=== PATIENT | female | born 1980 | race Caucasian/White ===

== ENCOUNTER 2018-06-15 10:00 | Day surgery (SDC) | payer OTHER ==
[2018-06-15] MEDS ORDERED: Sodium Chloride 0.9% 1,000 ML IV ONE (10:53)
--- NOTE | 2018-06-15 11:12 | C.PDOC ---
History Of Present Illness 37 y/o female comes to ED for same day surgery for hemorrhoid. Last PO intake was 8pm last night. Patient denies abdominal pain, nausea, vomiting, or fever. Notes last bowel movement was yesterday. Time Seen by Provider: 06/15/18 10:35 Chief Complaint (Nursing): Medical Clearance History Per: Patient History/Exam Limitations: no limitations Onset/Duration Of Symptoms: Days Current Symptoms Are (Timing): Still Present Past Medical History Reviewed: Historical Data, Nursing Documentation, Vital Signs Vital Signs: Last Vital Signs Temp 98.5 F 06/15/18 10:06 Pulse 69 06/15/18 10:06 Resp 16 06/15/18 10:06 BP 141/85 06/15/18 10:06 Pulse Ox 100 06/15/18 10:06 Primary Care Provider: Callum Weir Family History: States: No Known Family Hx - Social History Hx Alcohol Use: Yes Hx Substance Use: No Review Of Systems Constitutional: Negative for: Fever, Chills Respiratory: Negative for: Shortness of Breath Gastrointestinal: Positive for: Other (hemorrhoid). Negative for: Nausea, Vomiting, Abdominal Pain Genitourinary: Negative for: Dysuria Musculoskeletal: Negative for: Back Pain Physical Exam - Physical Exam Appears: Non-toxic, No Acute Distress Skin: Warm, Dry Head: Normacephalic Eye(s): bilateral: PERRL Oral Mucosa: Moist Neck: Supple Chest: No Tenderness Cardiovascular: Rhythm Regular, No Murmur Respiratory: No Rales, No Rhonchi, No Wheezing, Other (clear to auscultation bilaterally) Gastrointestinal/Abdominal: Bowel Sounds (normoactive), Soft, No Tenderness Rectal: Hemorrhoids (small, firm, mildly tender hemorrhoid in 4 o clock position, non-thrombosed) Extremity: Bilateral: Atraumatic Neurological/Psych: Oriented x3, Normal Speech, Normal Cognition ED Course And Treatment ECG: Interpreted By Me, Viewed By Me ECG Rhythm: Sinus Rhythm Rate From EC O2 Sat by Pulse Oximetry: 100 (RA) Pulse Ox Interpretation: Normal Medical Decision Making Medical Decision Making: Plan: --Labs --EKG --UA --Urine preg --IV fluids 1L Disposition Discussed With : Quincy Dobson - Disposition Disposition: HOSPITALIZED Disposition Time: 11:13 Condition: GOOD Forms: [facility] ([place]ayan) - Clinical Impression Clinical Impression: Hemorrhoid - 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 - Scribe Statement The provider has reviewed the documentation as recorded by the Scribdonavan Doll All medical record entries made by the Soledadibdonavan were at my direction and personally dictated by me. I have reviewed the chart and agree that the record accurately reflects my personal performance of the history, physical exam, medical decision making, and the department course for this patient. I have also personally directed, reviewed, and agree with the discharge instructions and disposition.
[2018-06-15 11:19] LABS: BASO % 0.5 % (0.0-2.0); EOS % 0.6 % (0.0-4.0); HEMOGLOBIN 13.8 g/dL (11.0-16.0); LYMPH # 2.5 K/uL (1.0-4.3); LYMPH % 33.6 % (20.0-40.0); MEAN CELL VOLUME 90.4 fL (81.0-99.0); MEAN CORPUSCULAR HEMOGLOBIN 29.9 pg (27.0-31.0); MEAN CORPUSCULAR HGB CONC 33.1 g/dL (33.0-37.0); MEAN PLATELET VOLUME 7.7 fL (7.2-11.7); MONO # 0.4 K/uL (0.0-0.8); MONO % 5.4 % (0.0-10.0); NEUT # 4.5 K/uL (1.8-7.0); NEUT % 59.9 % (50.0-75.0); RBC 4.6 Mil/uL (3.80-5.20); RED CELL DISTRIBUTION WIDTH 13.9 % (11.5-14.5); WHITE BLOOD COUNT 7.5 K/uL (4.8-10.8)
[2018-06-15 11:26] LABS: HCG,QUALITATIVE URINE NEGATIVE (NEGATIVE)
[2018-06-15 11:32] LABS: INR 1.1; PROTHROMBIN TIME 12.2 SECONDS (9.7-12.2)
[2018-06-15 11:42] LABS: SQUAMOUS EPITHIAL < 1 /hpf (0-5); URINE BACTERIA RARE (<OCC); URINE BILIRUBIN NEGATIVE (NEGATIVE); URINE BLOOD 1+ (NEGATIVE); URINE CLARITY Clear (Clear); URINE COLOR Yellow (YELLOW); URINE GLUCOSE (UA) NORMAL (Normal); URINE LEUKOCYTE ESTERASE NEG Leu/uL (Negative); URINE PROTEIN NEGATIVE (NEGATIVE); URINE UROBILINOGEN NORMAL mg/dL (0.2-1.0)
[2018-06-15 13:01] LABS: ALB/GLOB RATIO 1.4 (1.0-2.1); ALBUMIN 4.2 g/dL (3.5-5.0); ALT/SGPT 29 U/L (9-52); AST/SGOT 28 U/L (14-36); BLOOD UREA NITROGEN 12 mg/dL (7-17); CALCIUM 9.2 mg/dl (8.6-10.4); GFR NON-AFRICAN AMERICAN > 60
[2018-06-15] MEDS ORDERED: Lidocaine Hydrochloride 10 ML INJ ONE (13:31)
[2018-06-15] MEDS ORDERED: ceFAZolin 1 gm in NS 1 GM/100 ML BAG IVPB ONE (13:31)
[2018-06-15] MEDS ORDERED: Midazolam 2 MG/2 ML VIAL ONE (13:33)
[2018-06-15] MEDS ORDERED: Propofol 10 mg/ml Inj (20 ML) ONE (13:33)
[2018-06-15] MEDS ORDERED: Rocuronium 10 mg/ml (5 ml) ONE (13:35)
[2018-06-15] MEDS ORDERED: Succinylcholine Chloride 20 mg/ml Syr (5 ml) IV ONE (13:35)
[2018-06-15] MEDS ORDERED: Lidocaine Hydrochloride 5 ML INJ ONE (13:35)
[2018-06-15] MEDS ORDERED: Bupivacaine HCl 0.5% PF (10 ml) Inj ONE (14:32)
[2018-06-15] MEDS ORDERED: Oxycodone/Acetaminophen 5/325 mg Tab PO PRN (14:45)
[2018-06-15] MEDS ORDERED: Lactated Ringer's 1,000 ML IV SCH (15:15)
[2018-06-15] MEDS: HYDROmorphone 0.5 mg/0.5 ml ISec IVP PRN ×2 (15:21→16:06)
[2018-06-15 17:15] VITALS: O2SAT 100
[2018-06-15 17:27] VITALS: BP 111/70; PULSE 78; RESP 20; TEMP 97
--- NOTE | 2018-06-16 06:12 | OP ---
PROCEDURE DATE: 06/15/2018 PREOPERATIVE DIAGNOSIS: Thrombosed complex hemorrhoids. POSTOPERATIVE DIAGNOSES: Thrombosed complex hemorrhoids with rectal polyp. PROCEDURES PERFORMED: 1. Complex hemorrhoidectomy. 2. Full-thickness transanal excision of rectal polyp with advancement flap closure. 3. Repair of pudendal blood vessel. SURGEON: Quincy Dobson MD TYPE OF ANESTHESIA: General. ESTIMATED BLOOD LOSS: 15 mL. POSTOPERATIVE CONDITION: Stable. INDICATIONS FOR SURGERY: This is a 37-year-old female with a history of severe hemorrhoids including thrombosis and prolapse, who was seen in emergency room today with thrombosed hemorrhoids and seen in surgical consultation. Decision was made to take the patient for hemorrhoidectomy upon admission. DESCRIPTION OF PROCEDURE: The patient was taken to the operating room. General anesthesia was administered. The patient was placed in the prone position, Jackknife with the buttocks taped open. Proctosigmoidoscopy was carried out to 20 cm with no abnormal findings above the dentate line. An anoscopy revealed the small polyp just above the dentate line and the complex hemorrhoids in the left lateral quadrant and the external hernia was . Next, an anal retractor was placed, and the left lateral hemorrhoid bundle was grasped using a dee clamp. It was ligated at its space with a heavy Monocryl suture. A generous elliptical incision was made, and the hemorrhoid bundle was completely excised. Bleeding was controlled using the Bovie. Small tissue flaps were raised in a running closure, double layer was performed using the heavy Monocryl suture. Next, a rectal polyp was grasped with a clamp and excised full thickness. Full thickness flaps were raised. Counter incisions were made, and advancement flap closure was performed using Monocryl to prevent rectal stenosis. Of note, during the excision of the rectal polyp, a bleeding pudendal blood vessel was repaired with Prolene and blood flow confirmed by Doppler. Once the closure was performed, the wound was inspected and found to be hemostatic. The anal canal was packed with Surgicel. The patient tolerated the procedure well and returned to recovery room in stable condition. Quincy Dobson MD
== END 2018-06-15 19:01 | disposition home or self-care (01) ==
LOC: C.ER 10:00 → C.SDS 10:00 → MERGE 11:25 → C.SDS 19:01
PROVIDERS: ATTEND Surgery
DX: K64.5 Perianal venous thrombosis (principal); K62.1 Rectal polyp; K64.4 Residual hemorrhoidal skin tags
CPT/HCPCS: 45172; 46260; 80053; 81001; 84703; 85025; 85610; 85730; 86850; 86900; 88304; 88305; 99285; J1170; J2250; J2405; J2704; J3010